=== PATIENT | male | born 1975 | race Caucasian/White ===

== ENCOUNTER 2019-04-08 19:25 | Emergency (ER) | payer MEDICAID ==
[2019-04-08] MEDS ORDERED: ONDANSETRON HCL IV 4 MG/2 ML VIAL IV ONE (19:52)
[2019-04-08] MEDS ORDERED: ACETAMINOPHEN 1,000 MG/100 ML BTL IVPB ONE (19:52)
[2019-04-08] MEDS ORDERED: 0.9 % SODIUM CHLORIDE 1,000 ML BAG IV ONE ×2 (19:52→21:08)
--- NOTE | 2019-04-08 19:56 | Emergency Department Record ---
History of Present Illness - General Chief Complaint: Fever Stated Complaint: ABD,FEVER.CHILLS Time Seen by Provider: 04/08/19 19:43 Source: Patient, Family Mode of Arrival: Ambulatory Limitations: No limitations - History of Present Illness Initial Comments: The patient is here due to not feeling well for one week. He has had intermittent abdominal pain with loose stools and intermittent vomiting. He also has had a worsening gradual onset of a CORRAL over the last week. The head pain is global and is associated with photophobia but no neck pain. The patient states his abdominal pain is all over at times but is worse after vomiting. MD Complaint: Fever, Malaise, Weakness Onset/Timin -: Week(s) Associated Symptoms: Abdominal pain, Chills, Diarrhea, Headache Treatments Prior to Arrival: Ibuprofen - Related Data Previous Rx's Medication Instructions Recorded Ondansetron [Zofran Odt] 4 mg SL .Q4-6H PRN #12 tab.rapdis 04/08/19 Allergies Allergy/AdvReac Type Severity Reaction Status Date / Time codeine Allergy PT UNSURE Verified 04/08/19 19:42 OF REACTION Penicillins Allergy PT UNSURE Verified 04/08/19 19:42 OF REACTION propoxyphene [From Darvon] Allergy PT UNSURE Verified 04/08/19 19:42 OF REACTION Travel Screening - Travel/Exposure Within Last 30 Days Have you traveled within the last 30 days?: Yes Location Detail:: [facility] - Travel/Exposure Within Last Year Have you traveled outside the [place] in the last year?: No - Additonal Travel Details Have you been exposed to anyone with a communicable illness?: No - Travel Symptoms Symptom Screening: None Review of Systems Constitutional: Reports: Fever, Malaise. Denies: Chills Eyes: Denies: Eye discharge ENT: Denies: Congestion Respiratory: Reports: Cough. Denies: Dyspnea Cardiovascular: Denies: Arrhythmia Endocrine: Reports: Fatigue Gastrointestinal: Reports: Abdominal pain, Diarrhea, Nausea, Vomiting Genitourinary: Denies: Dysuria Musculoskeletal: Denies: Arthralgia, Back pain Skin: Denies: Bruising Past Medical History - SOCIAL HISTORY Smoking Status: Current every day smoker Alcohol Use: None Drug Use: None - RESPIRATORY Hx Respiratory Disorders: Yes Hx Asthma: Yes - CARDIOVASCULAR Hx Cardio Disorders: No - NEURO Hx Neuro Disorders: No - GI Hx GI Disorders: No - Hx Genitourinary Disorders: No - ENDOCRINE Hx Endocrine Disorders: No - MUSCULOSKELETAL Hx Musculoskeletal Disorders: No - PSYCH Hx Psych Problems: Yes Hx Anxiety: Yes Hx Depression: Yes - HEMATOLOGY/ONCOLOGY Hx Hematology/Oncology Disorders: No Family Medical History Any Significant Family History?: No Physical Exam - General General Appearance: Alert, Oriented x3, Cooperative, Mild distress (due to the pain all over.) - Head Head exam: Atraumatic, Normocephalic, Normal inspection - Eye Eye exam: Normal appearance, PERRL, EOMI. negative: Conjunctival injection - ENT Throat exam: Normal inspection. negative: Tonsillar erythema, Tonsillar exudate - Neck Neck exam: Normal inspection, Full ROM. negative: Meningismus (The neck is supple.), Tenderness - Respiratory Respiratory exam: Normal lung sounds bilaterally. negative: Respiratory distress - Cardiovascular Cardiovascular Exam: Regular rate, Normal rhythm, Normal heart sounds - GI/Abdominal GI/Abdominal exam: Soft, Normal bowel sounds. negative: Tenderness - Extremities Extremities exam: Normal inspection, Full ROM, Normal capillary refill. negative: Tenderness - Back Back exam: Reports: Normal inspection - Neurological Neurological exam: Alert, CN II-XII intact, Normal gait, Oriented X3, Other (Neg Kernigs and Brudskinski's reflexes. Neg Drift and Rhomberg.). negative: Abnormal gait, Altered, Motor sensory deficit - Skin Skin exam: negative: Rash Course Vital Signs 04/08/19 19:34 Temperature 99.8 F H Pulse Rate [ 89 Left] Respiratory 16 Rate Blood Pressure 131/80 [Left] Pulse Ox 98 - Reevaluation(s) Reevaluation #1: The patient is doing a lot better at this time. His CORRAL is improving and he denies any neck pain. There presently is no AP, nausea or vomiting. On exam his abdomen is very soft and nontender in all 4 quads. I did discuss the need for an LP due to the persistent CORRAL and the patient would like to think about it. 04/08/19 20:51 Reevaluation #2: The patient is doing a lot better at this time. His CORRAL is down to a 3/10 and he is now hungry with no AP. On exam he is up walking without difficulty and no belly pain. On exam his neck is supple and his abdomen is very soft and nontender in all 4 quads. I again did recommend an LP but the patient is refusing. He understands the risks of refusing are that he could have a delayed diagnosis of meningitis which could lead to seizures, strokes, disability and . The patient presently has proper decision making capacity and accepts the risks. He does agree to a 12 hour recheck in the ER. 04/08/19 21:12 Reevaluation #3: I again did offer to perform an LP on the patient to R/O meningitis but again the patient is refusing. He is up walking with no pain or discomfort and denies any head pain now. I again did discuss the risks of refusing and he accepts the risks. The patient is very hungry and now is eating with no problems. He does agree to a 12 hour recheck. 04/08/19 21:26 Medical Decision Making - Data Complexity MDM Data: Labs Ordered and/or Reviewed - Lab Data Result diagrams: 04/08/19 19:50 04/08/19 19:50 Disposition Disposition: Discharge Clinical Impression: Dehydration Disposition: Against Medical Advice Condition: (2) Stable Instructions: Acute Nausea and Vomiting (ED) Additional Instructions: Please drink plenty of fluids and use the Zofran for nausea. Take Motrin or Tylenol for pain and please return to the ER in 12 hours for recheck. Return sooner for any worsening symptoms. Prescriptions: Ondansetron [Zofran Odt] 4 mg SL .Q4-6H PRN #12 tab.rapdis PRN Reason: Nausea Forms: Patient Portal Access Time of Disposition: 21:29 Quality - Quality Measures Quality Measures: N/A - Blood Pressure Screening View Details: Yes Does Patient Have Any of the Following: No Blood Pressure Classification: Normal BP Reading Systolic Measurement: 115 Diastolic Measurement: 62 Screening for High Blood Pressure: < Normal BP, F/U Not Required > [G8783]
[2019-04-08 20:11] LABS: BLOOD UREA NITROGEN 13 mg/dL (6-20); CREATININE 0.8 mg/dL (0.7-1.2); EST GLOMERULAR FILTRATION RATE > 60 mL/min
[2019-04-08 20:12] LABS: LIPASE 75 U/L (13-60); TOTAL PROTEIN 5.9 g/dL (6.6-8.7)
[2019-04-08 20:14] LABS: ABSOLUTE NEUTROPHIL COUNT 5.54; BASO % 0.3 % (0-6); EOS % 1.7 % (0-6); GLUCOSE,RANDOM 110 mg/dL (74-109); GRAN % 77.1 % (47-80); HEMATOCRIT 39.7 % (42.0-52.0); LYMPH % 11.6 % (16-45); MEAN CELL VOLUME 87.6 fl (81-97); MEAN CORPUSCULAR HGB CONC 32.7 g/dl (32-36); MEAN PLATELET VOLUME 10.7 fl (7.4-10.4); MONO % 9.3 % (0-9); PLATELET COUNT 351 K/uL (130-400); RED BLOOD COUNT 4.53 M/uL (4.40-5.70); RED CELL DISTRIBUTION WIDTH 13.8 % (11.5-14.5); WHITE BLOOD COUNT W/O DIFF 7.2 K/uL (4.2-12.2)
[2019-04-08 20:16] LABS: ALBUMIN 3.2 g/dL (4.0-5.0); ALT/SGPT 46 U/L (<41); AST/SGOT 17 U/L (10.0-50.0); MEAN CORPUSCULAR HEMOGLOBIN 28.6 pg (27-33)
[2019-04-08 20:17] LABS: ALKALINE PHOSPHATASE 227 U/L (40-129); BILIRUBIN,DIRECT < 0.2 mg/dL (0-0.3)
[2019-04-08 20:30] LABS: URINE APPEARANCE CLEAR; URINE BILIRUBIN NEGATIVE (NEGATIVE); URINE BLOOD NEGATIVE (NEGATIVE); URINE COLOR YELLOW; URINE GLUCOSE (UA) NEGATIVE (NEGATIVE); URINE KETONE NEGATIVE (NEGATIVE); URINE LEUKOCYTE ESTERASE NEGATIVE (NEGATIVE); URINE NITRITE NEGATIVE (NEGATIVE); URINE PROTEIN NEGATIVE (NEGATIVE)
[2019-04-08] MEDS ORDERED: KETOROLAC 30 MG/ML VIAL IVP ONE (20:32)
[2019-04-08 20:41] LABS: AMPHETAMINE SCREEN URINE NOT DETECTED; BARBITURATE SCREEN URINE NOT DETECTED; BENZODIAZEPINE SCREEN URINE NOT DETECTED; COCAINE SCREEN URINE NOT DETECTED; METHADONE SCREEN URINE NOT DETECTED; METHAMPHETAMINE SCREEN NOT DETECTED; OPIATE SCREEN URINE NOT DETECTED; OXYCODONE SCREEN URINE NOT DETECTED; PHENCYCLIDINE SCREEN URINE NOT DETECTED; PROPOXYPHENE SCREEN URINE NOT DETECTED; THC SCREEN URINE DETECTED; TRICYCLIC ANTIDEPRESSANT SCRN NOT DETECTED
== END 2019-04-08 21:45 | disposition left against medical advice (07) ==
LOC: ER 19:25
DX: E86.0 Dehydration (principal); R11.11 Vomiting without nausea; R53.1 Weakness; R19.7 Diarrhea, unspecified; R51 Headache; R10.9 Unspecified abdominal pain; H53.149 Visual discomfort, unspecified; F17.210 Nicotine dependence, cigarettes, uncomplicated
CPT/HCPCS: 80048; 80076; 80305; 81003; 83690; 85025; 86140; 96365; 96375; 99284; J1885; J2405; J7030

== ENCOUNTER 2019-04-09 08:05 | Emergency (ER) | payer MEDICAID ==
[2019-04-09] MEDS ORDERED: ONDANSETRON HCL IV 4 MG/2 ML VIAL IVP ONE (08:35)
[2019-04-09] MEDS ORDERED: ACETAMINOPHEN 1,000 MG/100 ML BTL IVPB ONE (08:35)
[2019-04-09] MEDS ORDERED: 0.9 % SODIUM CHLORIDE 1,000 ML BAG IV ONE ×2 (08:35→11:11)
[2019-04-09 08:47] LABS: BASO % 0.2 % (0-6); EOS % 0.6 % (0-6); GRAN % 73.5 % (47-80); HEMATOCRIT 36.8 % (42.0-52.0); HEMOGLOBIN 12.2 gm/dl (14.0-18.0); LYMPH % 14.9 % (16-45); MEAN CELL VOLUME 87.4 fl (81-97); MEAN CORPUSCULAR HGB CONC 33.2 g/dl (32-36); MEAN PLATELET VOLUME 10.7 fl (7.4-10.4); MONO % 10.8 % (0-9); PLATELET COUNT 370 K/uL (130-400); RED BLOOD COUNT 4.21 M/uL (4.40-5.70); RED CELL DISTRIBUTION WIDTH 13.7 % (11.5-14.5); URINE APPEARANCE CLEAR; URINE BILIRUBIN NEGATIVE (NEGATIVE); URINE BLOOD NEGATIVE (NEGATIVE); URINE COLOR YELLOW; URINE GLUCOSE (UA) NEGATIVE (NEGATIVE); URINE KETONE NEGATIVE (NEGATIVE); URINE LEUKOCYTE ESTERASE NEGATIVE (NEGATIVE); URINE NITRITE NEGATIVE (NEGATIVE); URINE PROTEIN NEGATIVE (NEGATIVE); WHITE BLOOD COUNT W/O DIFF 8.6 K/uL (4.2-12.2)
[2019-04-09 08:52] LABS: AMPHETAMINE SCREEN URINE NOT DETECTED; BARBITURATE SCREEN URINE NOT DETECTED; BENZODIAZEPINE SCREEN URINE NOT DETECTED; COCAINE SCREEN URINE NOT DETECTED; MEAN CORPUSCULAR HEMOGLOBIN 28.9 pg (27-33); METHADONE SCREEN URINE NOT DETECTED; METHAMPHETAMINE SCREEN NOT DETECTED; OPIATE SCREEN URINE NOT DETECTED; OXYCODONE SCREEN URINE NOT DETECTED; PHENCYCLIDINE SCREEN URINE NOT DETECTED; PROPOXYPHENE SCREEN URINE NOT DETECTED; THC SCREEN URINE DETECTED; TRICYCLIC ANTIDEPRESSANT SCRN NOT DETECTED
[2019-04-09 09:01] LABS: BLOOD UREA NITROGEN 11 mg/dL (6-20); CREATININE 0.8 mg/dL (0.7-1.2); EST GLOMERULAR FILTRATION RATE > 60 mL/min; INFLUENZA A NEGATIVE (NEGATIVE); INFLUENZA B NEGATIVE (NEGATIVE)
[2019-04-09 09:02] LABS: TOTAL PROTEIN 5.8 g/dL (6.6-8.7)
[2019-04-09 09:04] LABS: GLUCOSE,RANDOM 118 mg/dL (74-109)
[2019-04-09 09:06] LABS: ALB/GLOB RATIO 1.3 (1.1-1.8); ALBUMIN 3.3 g/dL (4.0-5.0); ALKALINE PHOSPHATASE 205 U/L (40-129); ALT/SGPT 38 U/L (<41); AST/SGOT 16 U/L (10.0-50.0); C-REACTIVE PROTEIN 5.16 mg/dL (<0.5)
[2019-04-09 09:44] LABS: ERYTHROCYTE SEDIMENTATION RATE 33 mm/hr (0-15)
--- NOTE | 2019-04-09 09:54 | Emergency Department Record ---
History of Present Illness - General Chief Complaint: Recheck - Other Stated Complaint: RECHECK Time Seen by Provider: 04/09/19 08:08 Source: Patient Mode of arrival: Ambulatory Limitations: No limitations - History of Present Illness Initial Comments: pt here for a recheck. he was here 12 hrs ago for fever, ap, espino. he comes back because he feels worse.. he has n but no v/c/d. the ap is generalized. he continues to have a espino. he also has a rash. he has traveled to [place] and was in [facility] and had mosquito bites Onset/Timin -: Days(s) Initial Visit For: Other Returns Today for: Persistent/worsening pain related to initial visit, Other Symptoms Since Prior Visit: No new symptoms, Fever Associated Symptoms: Abdominal pain, Other - Related Data Previous Rx's Medication Instructions Recorded Ondansetron [Zofran Odt] 4 mg SL .Q4-6H PRN #12 tab.rapdis 04/08/19 Allergies Allergy/AdvReac Type Severity Reaction Status Date / Time codeine Allergy PT UNSURE Verified 04/09/19 08:15 OF REACTION Penicillins Allergy PT UNSURE Verified 04/09/19 08:15 OF REACTION propoxyphene [From Darvon] Allergy PT UNSURE Verified 04/09/19 08:15 OF REACTION Travel Screening - Travel/Exposure Within Last 30 Days Have you traveled within the last 30 days?: No - Travel/Exposure Within Last Year Have you traveled outside the [place] in the last year?: No - Additonal Travel Details Have you been exposed to anyone with a communicable illness?: No - Travel Symptoms Symptom Screening: None Review of Systems Reviewed: No additional complaints except as noted below Constitutional: Reports: As per HPI. Denies: Chills, Fever, Malaise, Night sweats, Weakness, Weight change Eyes: Reports: As per HPI. Denies: Eye discharge, Eye pain, Photophobia, Vision change ENT: Reports: As per HPI. Denies: Congestion, Dental pain, Ear pain, Epistaxis, Hearing loss, Throat pain Respiratory: Reports: As per HPI. Denies: Cough, Dyspnea, Hemoptysis, Stridor, Wheezes Cardiovascular: Reports: As per HPI. Denies: Arrhythmia, Chest pain, Dyspnea on exertion, Edema, Murmurs, Orthopnea, Palpitations, Paroxysmal nocturnal dyspnea, Rheumatic Fever, Syncope Endocrine: Reports: As per HPI. Denies: Fatigue, Heat or cold intolerance, Polydipsia, Polyuria Gastrointestinal: Reports: As per HPI. Denies: Abdominal pain, Constipation, Diarrhea, Hematemesis, Hematochezia, Melena, Nausea, Vomiting Genitourinary: Reports: As per HPI. Denies: Dysuria, Frequency, Hematuria, Incontinence, Retention, Testicular pain, Testicular mass, Urgency Musculoskeletal: Reports: As per HPI. Denies: Arthralgia, Back pain, Gout, Joint swelling, Myalgia, Neck pain Skin: Reports: As per HPI. Denies: Bruising, Change in color, Change in hair/nails, Lesions, Pruritus, Rash Neurological: Reports: As per HPI. Denies: Abnormal gait, Confusion, Headache, Numbness, Paresthesias, Seizure, Tingling, Tremors, Vertigo, Weakness Psychiatric: Reports: As per HPI. Denies: Anxiety, Auditory hallucinations, Depression, Homicidal thoughts, Suicidal thoughts, Visual hallucinations Hematological/Lymphatic: Reports: As per HPI. Denies: Anemia, Blood Clots, Easy bleeding, Easy bruising, Swollen glands Past Medical History - SOCIAL HISTORY Smoking Status: Current every day smoker Alcohol Use: None - RESPIRATORY Hx Respiratory Disorders: Yes Hx Asthma: Yes - CARDIOVASCULAR Hx Cardio Disorders: No - NEURO Hx Neuro Disorders: No - GI Hx GI Disorders: No - Hx Genitourinary Disorders: No - ENDOCRINE Hx Endocrine Disorders: No - MUSCULOSKELETAL Hx Musculoskeletal Disorders: No - PSYCH Hx Psych Problems: Yes Hx Anxiety: Yes Hx Depression: Yes - HEMATOLOGY/ONCOLOGY Hx Hematology/Oncology Disorders: No Family Medical History Any Significant Family History?: Yes Physical Exam - General General Appearance: Alert, Oriented x3, Cooperative, Mild distress - Head Head exam: Normal inspection - Eye Eye exam: Normal appearance, PERRL, EOMI Pupils: Normal accommodation - ENT ENT exam: Normal exam, Mucous membranes moist, Normal external ear exam, Normal orophraynx Ear exam: Normal external inspection. negative: External canal tenderness Nasal Exam: Normal inspection. negative: Discharge, Sinus tenderness Mouth exam: Normal external inspection, Tongue normal Teeth exam: Normal inspection. negative: Dental caries Throat exam: Normal inspection. negative: Tonsillar erythema, Tonsillar exudate - Neck Neck exam: Normal inspection, Full ROM. negative: Tenderness - Respiratory Respiratory exam: Normal lung sounds bilaterally. negative: Respiratory distress - Cardiovascular Cardiovascular Exam: Regular rate, Normal rhythm, Normal heart sounds - GI/Abdominal GI/Abdominal exam: Soft, Normal bowel sounds, Tenderness - Rectal Rectal exam: Deferred - exam: Deferred - Extremities Extremities exam: Normal inspection, Full ROM, Normal capillary refill. negative: Tenderness - Back Back exam: Reports: Normal inspection, Full ROM. Denies: Muscle spasm, Rash noted, Tenderness - Neurological Neurological exam: Alert, CN II-XII intact, Normal gait, Oriented X3 - Psychiatric Psychiatric exam: Normal affect, Normal mood - Skin Skin exam: Dry, Intact, Normal color, Rash, Warm Distribution of rash: Generalized Description of rash: Macular, Papular Course Vital Signs 04/09/19 08:07 Temperature 100.0 F H Pulse Rate 80 Respiratory 20 Rate Blood Pressure 147/82 Pulse Ox 97 - Reevaluation(s) Reevaluation #1: 04/09/19 16:37 pt has an aseptic meningitis picture. we do not have iv acyclovir here. Reevaluation #2: 04/09/19 16:40 pt conts to have a headache Reevaluation #3: 04/09/19 16:[address] was neg, abd ct showed mesenteric adenitis. several labs are still pending at [facility] including csf bacterial and viral cultures, cies and syp hyllis. Procedures - Lumbar Puncture Consent Obtained: Written consent Time Out Performed: Yes Indication for Procedure: Fever work up, Headache Patient Position: Right lateral decubitus Skin Prep: 0.5% Chlorhexidine/Alcohol, Povidone-Iodine 1% Local Anesthetic Used: Lidocaine 1% Spinal Needle Gauge: 20G Spinal Needle Length: 3in Interspace Used: L4-L5 Fluid Initially Obtained: Clear Complications: None Patient Tolerated Procedure: Good Medical Decision Making - Lab Data Result diagrams: 04/09/19 08:26 04/09/19 08:26 Lab Results 04/09/19 04/09/19 04/09/19 Range/Units 08:26 08:26 08:26 WBC 8.6 (4.2-12.2) K/uL RBC 4.21 L (4.40-5.70) M/uL Hgb 12.2 L (14.0-18.0) gm/dl Hct 36.8 L (42.0-52.0) % MCV 87.4 (81-97) fl MCH 28.9 (27-33) pg MCHC 33.2 (32-36) g/dl RDW 13.7 (11.5-14.5) % Plt Count 370 (130-400) K/uL MPV 10.7 H (7.4-10.4) fl Gran % 73.5 (47-80) % Lymphocytes % 14.9 L (16-45) % Monocytes % 10.8 H (0-9) % Eosinophils % 0.6 (0-6) % Basophils % 0.2 (0-6) % Absolute Neutrophils 6.30 ESR 33 H (0-15) mm/hr Sodium 131 L (136-145) mmol/L Potassium 4.1 (3.4-4.5) mmol/L Chloride 96 L (98-107) mmol/L Carbon Dioxide 25.0 (22-29) mmol/L Anion Gap 10.0 (7-16) BUN 11 (6-20) mg/dL Creatinine 0.8 (0.7-1.2) mg/dL Estimated GFR > 60 mL/min Random Glucose 118 H (74-109) mg/dL Lactic Acid (0.5-2.2) mmol/L Calcium 8.7 (8.6-10.0) mg/dL Total Bilirubin 0.30 (0.2-1.0) mg/dL AST 16 (10.0-50.0) U/L ALT 38 (<41) U/L Alkaline Phosphatase 205 H (40-129) U/L C-Reactive Protein 5.16 H (<0.5) mg/dL Total Protein 5.8 L (6.6-8.7) g/dL Albumin 3.3 L (4.0-5.0) g/dL Globulin 2.5 (1.4-4.8) gm/dL Albumin/Globulin Ratio 1.3 (1.1-1.8) Urine Color Yellow Urine Appearance Clear Urine pH 7.5 (5.0-8.0) Ur Specific [place] 1.015 (1.002-1.030) Urine Protein Negative (NEGATIVE) Urine Glucose (UA) Negative (NEGATIVE) Urine Ketones Negative (NEGATIVE) Urine Blood Negative (NEGATIVE) Urine Nitrite Negative (NEGATIVE) Urine Bilirubin Negative (NEGATIVE) Urine Urobilinogen 1.0 (0.20 - 1.00) E.U./dL Ur Leukocyte Esterase Negative (NEGATIVE) Urine Opiates Screen Ur Oxycodone Screen Urine Methadone Screen Ur Propoxyphene Screen Ur Barbituates Screen Ur Tricyclics Screen Ur Phencyclidine Scrn Ur Amphetamine Screen U Methamphetamines Scrn U Benzodiazepines Scrn Urine Cocaine Screen Urine Cannabis Screen Influenza Type A Ag (NEGATIVE) Influenza Type B Ag (NEGATIVE) Group A Strep Screen (NEGATIVE) 04/09/19 04/09/19 04/09/19 Range/Units 08:26 08:26 08:26 WBC (4.2-12.2) K/uL RBC (4.40-5.70) M/uL Hgb (14.0-18.0) gm/dl Hct (42.0-52.0) % MCV (81-97) fl MCH (27-33) pg MCHC (32-36) g/dl RDW (11.5-14.5) % Plt Count (130-400) K/uL MPV (7.4-10.4) fl Gran % (47-80) % Lymphocytes % (16-45) % Monocytes % (0-9) % Eosinophils % (0-6) % Basophils % (0-6) % Absolute Neutrophils ESR (0-15) mm/hr Sodium (136-145) mmol/L Potassium (3.4-4.5) mmol/L Chloride (98-107) mmol/L Carbon Dioxide (22-29) mmol/L Anion Gap (7-16) BUN (6-20) mg/dL Creatinine (0.7-1.2) mg/dL Estimated GFR mL/min Random Glucose (74-109) mg/dL Lactic Acid (0.5-2.2) mmol/L Calcium (8.6-10.0) mg/dL Total Bilirubin (0.2-1.0) mg/dL AST (10.0-50.0) U/L ALT (<41) U/L Alkaline Phosphatase (40-129) U/L C-Reactive Protein (<0.5) mg/dL Total Protein (6.6-8.7) g/dL Albumin (4.0-5.0) g/dL Globulin (1.4-4.8) gm/dL Albumin/Globulin Ratio (1.1-1.8) Urine Color Urine Appearance Urine pH (5.0-8.0) Ur Specific [place] (1.002-1.030) Urine Protein (NEGATIVE) Urine Glucose (UA) (NEGATIVE) Urine Ketones (NEGATIVE) Urine Blood (NEGATIVE) Urine Nitrite (NEGATIVE) Urine Bilirubin (NEGATIVE) Urine Urobilinogen (0.20 - 1.00) E.U./dL Ur Leukocyte Esterase (NEGATIVE) Urine Opiates Screen Not detected Ur Oxycodone Screen Not detected Urine Methadone Screen Not detected Ur Propoxyphene Screen Not detected Ur Barbituates Screen Not detected Ur Tricyclics Screen Not detected Ur Phencyclidine Scrn Not detected Ur Amphetamine Screen Not detected U Methamphetamines Scrn Not detected U Benzodiazepines Scrn Not detected Urine Cocaine Screen Not detected Urine Cannabis Screen Detected Influenza Type A Ag Negative (NEGATIVE) Influenza Type B Ag Negative (NEGATIVE) Group A Strep Screen Negative (NEGATIVE) 04/09/19 Range/Units 08:54 WBC (4.2-12.2) K/uL RBC (4.40-5.70) M/uL Hgb (14.0-18.0) gm/dl Hct (42.0-52.0) % MCV (81-97) fl MCH (27-33) pg MCHC (32-36) g/dl RDW (11.5-14.5) % Plt Count (130-400) K/uL MPV (7.4-10.4) fl Gran % (47-80) % Lymphocytes % (16-45) % Monocytes % (0-9) % Eosinophils % (0-6) % Basophils % (0-6) % Absolute Neutrophils ESR (0-15) mm/hr Sodium (136-145) mmol/L Potassium (3.4-4.5) mmol/L Chloride (98-107) mmol/L Carbon Dioxide (22-29) mmol/L Anion Gap (7-16) BUN (6-20) mg/dL Creatinine (0.7-1.2) mg/dL Estimated GFR mL/min Random Glucose (74-109) mg/dL Lactic Acid 0.8 (0.5-2.2) mmol/L Calcium (8.6-10.0) mg/dL Total Bilirubin (0.2-1.0) mg/dL AST (10.0-50.0) U/L ALT (<41) U/L Alkaline Phosphatase (40-129) U/L C-Reactive Protein (<0.5) mg/dL Total Protein (6.6-8.7) g/dL Albumin (4.0-5.0) g/dL Globulin (1.4-4.8) gm/dL Albumin/Globulin Ratio (1.1-1.8) Urine Color Urine Appearance Urine pH (5.0-8.0) Ur Specific [place] (1.002-1.030) Urine Protein (NEGATIVE) Urine Glucose (UA) (NEGATIVE) Urine Ketones (NEGATIVE) Urine Blood (NEGATIVE) Urine Nitrite (NEGATIVE) Urine Bilirubin (NEGATIVE) Urine Urobilinogen (0.20 - 1.00) E.U./dL Ur Leukocyte Esterase (NEGATIVE) Urine Opiates Screen Ur Oxycodone Screen Urine Methadone Screen Ur Propoxyphene Screen Ur Barbituates Screen Ur Tricyclics Screen Ur Phencyclidine Scrn Ur Amphetamine Screen U Methamphetamines Scrn U Benzodiazepines Scrn Urine Cocaine Screen Urine Cannabis Screen Influenza Type A Ag (NEGATIVE) Influenza Type B Ag (NEGATIVE) Group A Strep Screen (NEGATIVE) Disposition Disposition: Transfer Clinical Impression: Aseptic meningitis, Mesenteric adenitis Disposition: Acute Care Hospital Transfer Transfer To: [facility] Reason For Transfer: needs infectious disease Accepting Physician: dr briseno Time Discussed w/Accepting Physician: 17:19 Quality - Quality Measures Quality Measures: N/A - Blood Pressure Screening Does Patient Have Any of the Following: No Blood Pressure Classification: Pre-Hypertensive BP Reading Systolic Measurement: 147 Diastolic Measurement: 82 Screening for High Blood Pressure: < Pre-Hypertensive BP, F/U Documented > [G8950] Pre-Hypertensive Follow-up Interventions: Follow-up with rescreen every year.
[2019-04-09] MEDS ORDERED: HYDROMORPHONE HCL 2 MG/ML VIAL IVP ONE ×3 (09:59→18:04)
[2019-04-09] MEDS ORDERED: CEFTRIAXONE SODIUM 1 GM in 0.9 % SODIUM CHLORIDE 100ML 100 ML IVPB ONE (15:05)
[2019-04-09] MEDS ORDERED: CEFTRIAXONE SODIUM 2 GM in 0.9 % SODIUM CHLORIDE 100ML 100 ML IVPB ONE (15:14)
[2019-04-09] MEDS ORDERED: KETOROLAC 30 MG/ML VIAL IVP ONE (16:44)
--- NOTE | 2019-04-11 10:01 | RADIOLOGY REPORT ---
EXAM: CHEST, TWO VIEWS HISTORY: PATIENT HAS FEVER AND BODY ACHES. TECHNIQUE: Two views of the chest are provided without comparison examinations. FINDINGS: The cardiomediastinal silhouette is within normal limits for size and contour. The sebastian appear unremarkable. There is no radiographic evidence of a focal infiltrate, pleural effusion, or pneumothorax. IMPRESSION: NO RADIOGRAPHIC EVIDENCE OF AN ACUTE INTRATHORACIC PROCESS. JOB NUMBER: [id number] MTDD
--- NOTE | 2019-04-11 10:23 | CT SCAN REPORT ---
EXAM: CT SCAN OF THE HEAD HISTORY: PATIENT HAS HEADACHE TIMES ONE WEEK. PATIENT HAS FEVER. TECHNIQUE: Serial axial CT scan of the head was performed at 2.5 mm intervals from the base of the skull to the apex without the use of intravenous contrast. Sagittal and coronal reconstructions are provided. No comparison CT's are available. FINDINGS: The ventricles, cisterns and sulci appear within normal limits for size, shape and attenuation. There is no mass or mass effect. The young white differentiation appears within normal limits. The hypodensities within the bilateral basal ganglia likely represent Virchow Kd spaces. There is no CT evidence of intra or extraaxial fluid collection to suggest bleeding. The bone windows demonstrate no evidence of a fracture or dislocation of the skull. The paranasal sinuses demonstrate mild mucosal thickening suggesting chronic sinusitis. Clinical correlation is recommended. IMPRESSION: 1. NO CT EVIDENCE OF AN ACUTE INTRACRANIAL PROCESS. 2. POSSIBLE MILD CHRONIC SINUSITIS. CLINICAL CORRELATION IS RECOMMENDED. JOB NUMBER: [id number] MTDD
--- NOTE | 2019-04-11 10:37 | CT SCAN REPORT ---
EXAM: CT SCAN OF THE ABDOMEN AND PELVIS HISTORY: PATIENT HAS GENERALIZED ABDOMINAL PAIN. TECHNIQUE: Serial axial CT scan of the abdomen and pelvis was performed at 2.5 mm intervals from the dome of the diaphragm down to the pubic symphysis without the use of intravenous contrast. No comparison CT's are available. FINDINGS: The lung windows of the lung bases demonstrate no CT evidence of a focal infiltrate or pleural effusion. The visualized heart size and contour is within ginger limits. Minimal pericardial fluid is noted. There is questionable mild wall thickening of the gastroesophageal junction which may be related to gastroesophageal reflux. Clinical correlation is recommended. The liver, spleen, pancreas, bilateral adrenal glands, and gallbladder are unremarkable. The bilateral kidneys demonstrate no CT evidence of hydronephrosis or hydroureter. No renal or ureteral calculi are noted. At the inferior pole of the left kidney, there is a 1.9 cm exophytic structure which appears relatively dense. This finding may represent a proteinaceous and/or hemorrhagic renal cyst. If there is further clinical concern then MRI of the kidneys can be obtained for further evaluation. The contour and caliber of the noncontrasted abdominal aorta is within normal limits. Occasional nonspecific periaortic subcentimeter lymph nodes are identified. These may be reactive. There is no CT evidence of retroperitoneal lymphadenopathy. The bowel gas pattern is nonspecific, nonobstructive. Several subcentimeter lymph nodes are identified within the mid mesentery which may again be reactive. These findings may represent mesenteric lymphadenitis. Clinical correlation is recommended. There is no CT evidence of free intraperitoneal fluid or free intraperitoneal air. Given the lack of oral contrast, the appendix is not clearly identified. There is no gross CT evidence of appendicitis. The urinary bladder is unremarkable. Bone windows demonstrate degenerative disk disease at the L5-S1 disk space level. There is mild to moderate degenerative disk disease at the T11-T12 disk space level as well. IMPRESSION: 1. SEVERAL SUBCENTIMETER LYMPH NODES ARE IDENTIFIED WITHIN THE MID MESENTERY AND RETROPERITONEAL DISCUSSED ABOVE. THESE FINDINGS MAY REPRESENT MESENTERIC LYMPHADENITIS. CLINICAL CORRELATION IS RECOMMENDED. 2. MILD THICKENING OF THE GASTROESOPHAGEAL JUNCTION. THIS FINDING MAY REPRESENT GASTROESOPHAGEAL REFLUX. CLINICAL CORRELATION IS RECOMMENDED. JOB NUMBER: [id number] [facility]
== END 2019-04-09 18:12 | disposition short-term general hospital (02) ==
LOC: ER 08:05
DX: G03.0 Nonpyogenic meningitis (principal); I88.0 Nonspecific mesenteric lymphadenitis; R21 Rash and other nonspecific skin eruption; R51 Headache; R50.81 Fever presenting with conditions classified elsewhere; R10.84 Generalized abdominal pain; F17.210 Nicotine dependence, cigarettes, uncomplicated
CPT/HCPCS: 62270; 70450; 71046; 74176; 80053; 80305; 81003; 82945; 83605; 84157; 85025; 85651; 86140; 87205; 87400; 87880; 89051; 96361; 96365; 96366; 96375; 96376; 99152; 99285; J1885; J2405; J7030